=== PATIENT | female | born 1985 | race African-American/Black ===

== ENCOUNTER 2016-07-05 02:30 | Inpatient (IN) | payer MEDICARE, OTHER ==
[2016-07-05 02:41] VITALS: BMI 34.5
--- NOTE | 2016-07-05 02:47 | PDOC ---
History of Present Illness - General History Source: Patient <Klaus Mcintosh - Last Filed: 07/05/16 03:05> - General History Source: Patient Exam Limitations: No Limitations - History of Present Illness Initial Comments: 07/05/16 02:52 The patient is a 30 year old female who is 19 weeks , A0, with no significant past medical history, who presents to the emergency department with vaginal bleeding and abdominal cramping since yesterday morning. She reports that her abdominal cramping is localized on the lower abdomen, ranging from mild to moderate, without radiation or modifying factors. She states that she feels as if her water broke. She notes that her previous children were born via vaginal delivery. The patient denies chest pain, shortness of breath, headache and dizziness. Denies fever, chills, nausea, vomit, diarrhea and constipation. Denies dysuria, frequency, urgency and hematuria. Allergies: None Past surgical history: None reported Social history: No alcohol, tobacco or drug use reported <Klaus Goldberg - Last Filed: 07/05/16 03:06> - General Chief Complaint: Vaginal Bleeding Stated Complaint: VAGINAL BLEEDING/19 WKS Time Seen by Provider: 07/05/16 02:46 Past History - Past Medical History Other medical history: denies - Psycho/Social/Smoking Cessation Hx Suicidal Ideation: No Smoking History: Never smoked Hx Alcohol Use: No Drug/Substance Use Hx: No <Klaus Mcintosh - Last Filed: 07/05/16 03:05> <Klaus Goldberg - Last Filed: 07/05/16 03:06> - Past Medical History Allergies/Adverse Reactions: Allergies Allergy/AdvReac Type Severity Reaction Status Date / Time No Known Allergies Allergy Verified 07/05/16 02:34 Home Medications: Ambulatory Orders Pnv95/Ferrous Fumarate/FA [ Caplet] 1 each PO DAILY 07/05/16 Review of Systems - Review of Systems Able to Perform ROS?: Yes Comments:: 07/05/16 02:52 GENERAL/CONSTITUTIONAL: No fever or chills. No weakness. HEAD, EYES, EARS, NOSE AND THROAT: No change in vision. No ear pain or discharge. No sore throat. CARDIOVASCULAR: No chest pain or shortness of breath RESPIRATORY: No cough, wheezing, or hemoptysis. GASTROINTESTINAL: +Abdominal cramping. No nausea, vomiting, diarrhea or constipation. GENITOURINARY: +Vaginal bleeding. No dysuria, frequency, or change in urination. MUSCULOSKELETAL: No joint or muscle swelling or pain. No neck or back pain. SKIN: No rash NEUROLOGIC: No headache, vertigo, loss of consciousness, or change in strength/ sensation. ENDOCRINE: No increased thirst. No abnormal weight change HEMATOLOGIC/LYMPHATIC: No anemia, easy bleeding, or history of blood clots. ALLERGIC/IMMUNOLOGIC: No hives or skin allergy. <Klaus Goldberg - Last Filed: 07/05/16 03:06> *Physical Exam - Vital Signs Last Vital Signs Temp Pulse Resp BP Pulse Ox 92 H 18 133/70 100 07/05/16 02:35 07/05/16 02:35 07/05/16 02:35 07/05/16 02:35 <Klaus Mcintosh - Last Filed: 07/05/16 03:05> - Vital Signs Last Vital Signs Temp Pulse Resp BP Pulse Ox 92 H 18 133/70 100 07/05/16 02:35 07/05/16 02:35 07/05/16 02:35 07/05/16 02:35 - Physical Exam Comments: 07/05/16 02:53 GENERAL: Awake, alert, and fully oriented, in no acute distress HEAD: No signs of trauma, normocephalic, atraumatic EYES: PERRLA, EOMI, sclera anicteric, conjunctiva clear ENT: Auricles normal inspection, hearing grossly normal, nares patent, oropharynx clear without exudates. Moist mucosa NECK: Normal ROM, supple, no lymphadenopathy, JVD, or masses LUNGS: No distress, speaks full sentences, clear to auscultation bilaterally HEART: Regular rate and rhythm, normal S1 and S2, no murmurs, rubs or gallops, peripheral pulses normal and equal bilaterally. ABDOMEN: Soft, nontender, normoactive bowel sounds. No guarding, no rebound. No masses EXTREMITIES: Normal inspection, Normal range of motion, no edema. No clubbing or cyanosis. NEUROLOGICAL: Cranial nerves II through XII grossly intact. Normal speech, no focal sensorimotor deficits SKIN: Warm, Dry, normal turgor, no rashes or lesions noted. <Klaus Goldberg - Last Filed: 07/05/16 03:06> ED Treatment Course - LABORATORY CBC & Chemistry Diagram: 07/05/16 02:52 07/05/16 02:52 <Klaus Mcintosh - Last Filed: 07/05/16 03:05> - LABORATORY CBC & Chemistry Diagram: 07/05/16 02:52 07/05/16 02:52 <Klaus Goldberg - Last Filed: 07/05/16 03:06> Medical Decision Making - Medical Decision Making 07/05/16 03:05 Dr. Mcintosh: The scribe's documentation has been prepared under my direction and personally reviewed by me in its entirery. I confirm that the note above accurately reflects all work, treatment, procedures, and medical decision making performed by me. Patient 19 weeks , with complaint of her water breaking. Patient states she is experiencing lower abdominal cramping. Patient to be admitted to L&D. <Klaus Mcintosh - Last Filed: 07/05/16 03:05> *DC/Admit/Observation/Transfer - Discharge Dispostion Admit: Yes <Klaus Mcintosh - Last Filed: 07/05/16 03:05> - Attestations Scribe Attestion: 07/05/16 02:53 Documentation prepared by Klaus Goldberg, acting as medical scheduler for Klaus Mcintosh DO <Klaus Goldberg - Last Filed: 07/05/16 03:06> Diagnosis at time of Disposition: Vaginal bleeding Qualifiers: Weeks of gestation: 19 weeks Qualified Code(s): Z3A.19 - 19 weeks gestation of
[2016-07-05] MEDS ORDERED: PROMETHAZINE HCL 25 MG/1 ML VIAL IVPUSH ONE (02:49)
[2016-07-05] MEDS ORDERED: BUTORPHANOL TARTRATE 1 MG/ML VIAL IVPB ONE (02:49)
[2016-07-05 02:58] LABS: BASOPHIL 0.8 % (0-2.0); EOSINOPHIL 0.6 % (0-4.5); MCH 21.6 pg (25.7-33.7); MCHC 30.8 g/dl (32.0-36.0); MEAN PLT VOLUME 9.1 fl (7.5-11.1); NEUTROPHILS 65.7 % (42.8-82.8); PLATELET COUNT 352 K/MM3 (134-434); RDW 26.2 % (11.6-15.6)
[2016-07-05] MEDS ORDERED: ELECTROLYTE-148 SOLN 1,000 ML IV SCH (03:00)
--- NOTE | 2016-07-05 03:01 | HP ---
Past Medical History - Admission Chief Complaint: vaginal bleeding, leaking fluid, cramping History of Present Illness: 30 y/o with SIUP at 19.4 weeks gestation here with complaints of vaginal bleeding and leaking fluid. Pt also complains of abdominal cramping. Pt has a history of 2 full term SVDs in the past and history of two 6 week elective terminations in the past. Pt had on and off vaginal bleeding throughout this and no evidence of cause of bleeding was evident on ultrasound. Pt states that while she was at home this evening, she noticed a large amount of vaginal bleeding and a gush of fluid. Patient has no CP/SOB/F/C /MOREL. No significant medical history. Pt is B positive blood type. No other issues today. 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 Weeks Gestation by Dates: 19.4 Heme/Onc: Yes: Anemia Infectious Disease: No: HIV, MRSA, STD's Psych: No: Bipolar, Depression Endocrine: No: Hyperthyroidism, Hypothyroidism - Past Surgical History Past Surgical History: Yes: None Hx Myomectomy: No Hx Transabdominal Cerclage: No - Smoking History Smoking history: Never smoked - Alcohol/Substance Use Hx Alcohol Use: No - Social History ADL: Independent History of Recent Travel: No Home Medications - Allergies Allergies/Adverse Reactions: Allergies Allergy/AdvReac Type Severity Reaction Status Date / Time No Known Allergies Allergy Verified 07/05/16 02:34 - Home Medications Home Medications: Ambulatory Orders Pnv95/Ferrous Fumarate/FA [ Caplet] 1 each PO DAILY 07/05/16 Review of Systems - Review of Systems Constitutional: reports: No Symptoms Eyes: reports: No Symptoms HENT: reports: No Symptoms Neck: reports: No Symptoms Cardiovascular: reports: No Symptoms Respiratory: reports: No Symptoms Gastrointestinal: reports: No Symptoms Genitourinary: reports: No Symptoms Breasts: reports: No Symptoms Reported Musculoskeletal: reports: No Symptoms Integumentary: reports: No Symptoms Neurological: reports: No Symptoms Endocrine: reports: No Symptoms Hematology/Lymphatic: reports: No Symptoms Psychiatric: reports: No Symptoms Physical Exam - Maternity Vital Signs: Vital Signs Temperature Pulse Rate 92 H 07/05/16 02:35 Respiratory Rate 18 07/05/16 02:35 Blood Pressure 133/70 07/05/16 02:35 O2 Sat by Pulse Oximetry (%) 100 07/05/16 02:35 Constitutional: Yes: Well Nourished, Calm, Mild Distress Eyes: Yes: Conjunctiva Clear, EOM Intact HENT: Yes: Atraumatic, Normocephalic Neck: Yes: Supple, Trachea Midline Cardiovascular: Yes: Regular Rate and Rhythm Lungs: Clear to auscultation - Abdominal Exam/OB Fundal Height: 20 Number of Fetuses: Single Presentation: Breech Contractions: Yes Regularity: Cramping - Vaginal Exam/OB Vaginal Bleediing: Yes Speculum Exam: Yes Dilatation (cm): 3 Effacement (%): 50 Amniotic Membrane Status: Ruptured Presentation: Compound (umbilical cord noted to be in vagina canal) Station: 0 - Physical Exam Extremities: Yes: WNL ...Motor Strength: WNL Psychiatric: Yes: Alert, Oriented Hemorrhage Risk Assessment - Risk Factors Medium Risk Factors: Yes: None High Risk Factors: Yes: Active bleeding on admission Risk Score: 3 Risk Level: High Risk Problem List - Problems (1) Vaginal bleeding Code(s): N93.9 - ABNORMAL UTERINE AND VAGINAL BLEEDING, UNSPECIFIED (2) Code(s): Z33.1 - STATE, INCIDENTAL Qualifiers: Weeks of gestation: 19 weeks Qualified Code(s): Z3A.19 - 19 weeks gestation of (3) Spontaneous rupture of amniotic membranes Code(s): IMT9883 - Assessment/Plan 30 y/o with SIUP at 19.4 weeks gestation with ruptured amniotic membranes and cramping - incomplete - Admit to hospital - will go to post /antepartum floor - get IV access. Draw CBC/T&S/CMP/Coags - plan for vaginal cytotec to induce delivery of fetus - 2 units PRBC ready - type and crossed
[2016-07-05 03:11] LABS: INR 0.97 (0.82-1.09); PROTHROMBIN TIME (PATIENT) 10.7 SEC (9.98-11.88)
[2016-07-05 03:23] LABS: ALBUMIN 2.8 g/dl (3.4-5.0); ANION GAP 8 (8-16); BILIRUBIN,TOTAL 0.2 mg/dL (0.2-1.0); CALCIUM 8.9 mg/dL (8.5-10.1); CO2 26 mmol/L (21-32); CREATININE 0.6 mg/dL (0.55-1.02); GLUCOSE,RANDOM 99 mg/dL (74-106); SGOT/AST 21 U/L (15-37); SGPT/ALT 18 U/L (12-78); TOT PROT 6.6 g/dl (6.4-8.2)
[2016-07-05 03:24] LABS: ALK PHOS 91 U/L (45-117)
--- NOTE | 2016-07-05 03:34 | PN ---
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
[2016-07-05] MEDS ORDERED: ACETAMINOPHEN 325 MG TABLET (FP) PO PRN (03:36)
[2016-07-05] MEDS ORDERED: METHYLERGONOVINE MALEATE 0.2 MG/1 ML AMP IM PRN (03:36)
[2016-07-05] MEDS ORDERED: IBUPROFEN 600 MG TABLET (FP) PO PRN (03:36)
[2016-07-05] MEDS ORDERED: OXYTOCIN 20 UNITS in 0.9% NS 1,000 ML IV SCH (03:45)
--- NOTE | 2016-07-05 05:03 | PN ---
Progress Note (short form) - Note Progress Note: Came to evaluate patient after complaints of increasing cramping and vaginal bleeding. Traction placed on the umbilical cord and the placenta was manually extracted from the cervix. Placenta then delivered in tact. VB minimal after delivery. Problem List - Problems (1) Vaginal bleeding Code(s): N93.9 - ABNORMAL UTERINE AND VAGINAL BLEEDING, UNSPECIFIED (2) Code(s): Z33.1 - STATE, INCIDENTAL Qualifiers: Weeks of gestation: 19 weeks Qualified Code(s): Z3A.19 - 19 weeks gestation of (3) Spontaneous rupture of amniotic membranes Code(s): [id number] -
[2016-07-05] MEDS ORDERED: CEFAZOLIN 1 GM in DEXTROSE 5%-WATER - 50 ML IVPB SCH (05:15)
[2016-07-05 07:11] LABS: ANISOCYTOSIS 1+; POLYCHROMASIA 1+; SPHEROCYTE 1+
[2016-07-05 07:12] LABS: PLATELET ESTIMATE ADEQUATE (NORMAL)
[2016-07-05] MEDS ORDERED: MISOPROSTOL 200 MCG TABLET PV SCH (08:00)
[2016-07-05 08:14] LABS: BASOPHIL 0.4 % (0-2.0); EOSINOPHIL 0.7 % (0-4.5); MCH 22.4 pg (25.7-33.7); MCHC 31.9 g/dl (32.0-36.0); MEAN CELL VOLUME 70.3 fl (80-96); MEAN PLT VOLUME 8.4 fl (7.5-11.1); NEUTROPHILS 76.2 % (42.8-82.8); PLATELET COUNT 318 K/MM3 (134-434); RDW 26.3 % (11.6-15.6); WHITE BLOOD COUNT 12.6 K/mm3 (4.0-10.0)
[2016-07-05 13:16] VITALS: BP 129/62; PULSE 88; TEMP 98
--- NOTE | 2016-07-05 15:43 | DS ---
Physical Exam-YARD ENGINEER Vital Signs: Vital Signs Temperature 98.0 F 07/05/16 13:14 Pulse Rate 88 07/05/16 13:14 Respiratory Rate 18 07/05/16 13:14 Blood Pressure 129/62 07/05/16 13:14 O2 Sat by Pulse Oximetry (%) 100 07/05/16 02:35 Constitutional: Yes: Well Nourished, No Distress, Calm Eyes: Yes: Conjunctiva Clear, EOM Intact HENT: Yes: Atraumatic, Normocephalic Neck: Yes: Supple, Trachea Midline Cardiovascular: Yes: Regular Rate and Rhythm Respiratory: Yes: Regular, CTA Bilaterally Gastrointestinal: Yes: Normal Bowel Sounds, Soft ....Post : Yes: Uterus firm, Uterus non-tender, Slight lochia rubra Extremities: Yes: WNL Wound/Incision: Yes: Clean/Dry, Well Approximated Neurological: Yes: Alert, Oriented Psychiatric: Yes: Alert, Oriented Labs: CBC, BMP 07/05/16 07:20 07/05/16 02:52 Delivery - Delivery Vaginal Delivery: No Problems, Spontaneous (previable) Episiotomy/Laceration: None EBL (cc): 150 Delivery, Single - Stages of Labor Date of Delivery: 07/05/16 Time of Delivery: 03:25 Date Placenta Delivered: 07/05/16 Time Placenta Delivered: 04:50 Placenta: Yes: Manual Removal - Condition of Anode Adjuster/Certified Medical Transcriptionist Present: No Gender: Male Weight: 8.995 oz - 1 Minute Total Score: 0 5 Minutes Total Score: 0 Discharge Summary Reason For Visit: VAGINAL BLEEDING Current Active Problems (Acute) Spontaneous rupture of amniotic membranes (Acute) Vaginal bleeding (Acute) Procedures: Principal: vaginal delivery Hospital Course: Pt admitted to post with 19.4 week gestation fetus with rupture of membranes and dilated cervix - inevitable . 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 PLacenta delivered approx 90 minutes later after pitocin/cytotec given. Pt kept in observation throughout the day and was discharged home in stable condition 07/05/16 in the evening. Condition: Good - Instructions Diet, Activity, Other Instructions: Physical activity Resume your normal everyday activity as tolerated but no heavy lifting or strenuous exercise until seen by your doctor. You may walk unlimited amounts and climb stairs. You may resume driving the car when you feel safe and comfortable behind the wheel. No sexual activity as instructed. You may shower , no soaking in tubs or pools until cleared by your doctor. Diet There are no dietary restrictions. Eat healthy, high-fiber foods. Drink 6 to 8 glasses of liquid each day. This will assist in keeping your bowels are regular. Pain management You may take Tylenol Ibuprofen (for example, Motrin, Advil etc.) over the counter for pain as needed. You can take up to 600mg (3 tablets ) of ibuprofen every 6 hours - do NOT exceed 2400mg of Ibuprofen in a 24 hour period. Call MD for any of the following: Severe pain not relieved by medication Fever of 101 or higher Excessive bleeding or drainage Inability to urinate Referrals: Shavon Clemens DO [Staff Physician] - (2 weeks ) - Home Medications Comprehensive Discharge Medication List: Ambulatory Orders Pnv95/Ferrous Fumarate/FA [ Caplet] 1 each PO DAILY 07/05/16
--- NOTE | 2016-07-06 13:54 | PATH ---
Surgical Pathology Report Patient Name: MAGED BERNAL [facility]. Rec. 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 Specimen(s) Received A: PLACENTA B: FETUS, WITH DISSECTION Clinical History , demise, 19.3 weeks; spontaneous vagina delivery Final Diagnosis A. PLACENTA, DELIVERY: MULTIFOCALLY DISRUPTED THIRD TRIMESTER PLACENTA WITH MODERATE TO MARKED INCREASE IN PREVILLOUS, PERIVILLOUS, AND PRECHORIONIC FIBRIN DEPOSITION, THREE VESSEL UMBILICAL CORD WITH FOCAL ACUTE FUNISITIS, AND PLACENTAL MEMBRANES MARKED ACUTE CHORIOAMNIONITIS AND ACUTE INFLAMMATION OF CHORIONIC PLATE WITH CHORIONIC VASCULITIS. B. FETUS: 243 GM, 19.3 STATED GESTATIONAL WEEKS, INTACT MALE FETUS WITH: CROWN TO RUMP LENGTH: 14.5 CM CROWN TO HEEL LENGTH: 21.5 CM FOOT LENGTH: 3.3 CM ANTROPOMETRIC MEASUREMENTS APPROPRIATE FOR STATED GESTATIONAL AGE. LUNGS WITH INTRAUTERINE PNEUMONIA AND FOCAL MECONIUM TYPE MATEIAL. GI TRACT WITH INGESTED INFLAMMATORY MATERIAL. OTHER INTERNAL ORGANS WITHOUT SIGNIFICANT PATHOLOGIC FINDINGS. NO EXTERNAL MALFORMATIONS IDENTIFIED. Electronically Signed Kiko Hadley M.D. Gross Description A. The specimen is received fresh, labeled "placenta" and is a 120 gram, 12.0 x 9.0 x 1.8 cm. placenta with attached membranes and umbilical cord. The attached membranes are tapia, translucent with opacities and insert marginally. The umbilical cord measures 16.5 cm in length and averages 0.5 cm in diameter. The cord inserts eccentrically, 1.5 cm to the nearest margin. No true knots or strictures are identified. Cut surface of the umbilical cord reveals 3 vessels. The surface is mims-blue with fibrin deposition and appropriate caliber vessels. The maternal surface is tapia-pink with multifocal defects. Sectioning reveals red-brown, spongy parenchyma. No lesions are identified. Metal Casket Maker sections are submitted in three cassettes as follows: 1- membrane rolls and umbilical cord; 2-3- full thickness sections of placenta. B. Received fresh, labeled with the patient's name and indicated on the requisition to be a fetus, is a 243 g intact fetus measuring 14.5 cm from crown to rump and 21.5 cm from crown to heel. Each foot measures 3.3 cm from heel to toe. The anus and nares are patent. The eyelids are fused shut. The upper and lower extremities are completely normal and well proportioned, without any bony defects. Each hand and foot displays 5 digits. There are no axial defects and the lumbosacral spine is intact. There is a 5.5 cm in length x 0.6 cm in diameter portion of umbilical cord attached to the umbilicus. The heart is normally positioned and all major blood vessels are in their normal anatomic position. No gross cardiac or lung abnormalities are noted. The abdominal organs also occupy their normal anatomic position. The kidneys and adrenals are well formed. The genitourinary tract is unremarkable. The external genitalia are well formed and that of a male. The brain is tapia and gelatinous. Metal Casket Maker sections are submitted in 5 cassettes as follows: 1-ribs, umbilical cord, heart, lungs, thymus; 2-liver, stomach, spleen, intestines; 3-kidneys and adrenals; 4-testes; 5-brain. 07/05/2016 [facility]07/05/2016
[2016-07-06] MEDS ORDERED: SENNOSIDES/DOCUSATE COMBO (SENNA PLUS) TABLET (UD) PO PRN (22:00)
== END 2016-07-05 16:30 | disposition home or self-care (01) | DRG 564 ==
LOC: JER 02:30 → J3W 02:50
PROVIDERS: ADMIT Obstetrics & Gynecology; ATTEND Obstetrics & Gynecology
DX: O02.1 Missed abortion (principal)
CPT/HCPCS: 36415; 80053; 84702; 85025; 85610; 86850; 86900; 86901; 86922; 88307-TC; 88309-TC; 99281-25

== ENCOUNTER 2018-03-28 05:57 | Inpatient (IN) | payer OTHER ==
[2018-03-28 06:32] VITALS: BMI 36.2
[2018-03-28] MEDS ORDERED: BUTORPHANOL TARTRATE 1 MG/ML VIAL IVPB ONE (06:39)
[2018-03-28] MEDS ORDERED: AMPICILLIN SODIUM 2 GM VIAL ONE (06:40)
[2018-03-28] MEDS ORDERED: AMPICILLIN - 2 GM in SODIUM CHLORIDE 100 ML IVPB ONE (06:44)
[2018-03-28] MEDS ORDERED: ELECTROLYTE-148 SOLN 1,000 ML IV SCH ×2 (06:45)
[2018-03-28 07:01] LABS: BASO % 0.4 % (0-2.0); EOS % 0.4 % (0-4.5); HEMATOCRIT 31.9 % (32.4-45.2); HEMOGLOBIN 9.9 GM/dL (10.7-15.3); LYMPH % 31.6 % (8-40); MCH 22.5 pg (25.7-33.7); MEAN CELL VOLUME 72.6 fl (80-96); MONO % 6.2 % (3.8-10.2); NEUT % 61.4 % (42.8-82.8); PLATELET COUNT 236 K/MM3 (134-434); RBC 4.39 M/mm3 (3.60-5.2); RDW 22.6 % (11.6-15.6); WHITE BLOOD COUNT 8.5 K/mm3 (4.0-10.0)
[2018-03-28 07:13] LABS: INR 0.89 (0.83-1.09); PROTHROMBIN TIME (PATIENT) 10.5 SEC (9.7-13.0)
[2018-03-28 07:15] LABS: ACTIVATED PTT 25.9 SECONDS (25.2-36.5)
[2018-03-28 07:19] LABS: ANION GAP 10 MMOL/L (8-16); BLOOD UREA NITROGEN 5 mg/dL (7-18); CALCIUM 8.9 mg/dL (8.5-10.1); CHLORIDE 111 mmol/L (98-107); CO2 20 mmol/L (21-32); CREATININE 0.5 mg/dL (0.55-1.3); GLUCOSE,RANDOM 84 mg/dL (74-106); POTASSIUM 4.2 mmol/L (3.5-5.1); SODIUM 141 mmol/L (136-145)
[2018-03-28 07:58] LABS: ANISOCYTOSIS 3+; PLATELET ESTIMATE ADEQUATE; TARGET CELLS 1+
[2018-03-28] MEDS ORDERED: DEXTROSE 5%-LACTATED RINGERS 1,000 ML IV SCH (08:45)
[2018-03-28] MEDS ORDERED: TUBERCULIN PPD 5 TU/0.1ML SYRINGE (IN PATIENT USE ONLY) ID ONE (10:00)
[2018-03-28] MEDS ORDERED: AMPICILLIN SODIUM 1 GM VIAL ONE (10:15)
[2018-03-28] MEDS ORDERED: SODIUM CHLORIDE 100 ML IVPB ONE (10:15)
[2018-03-28] MEDS ORDERED: AMPICILLIN - 1 GM in SODIUM CHLORIDE 100 ML IVPB SCH (10:46)
[2018-03-28] MEDS ORDERED: PROMETHAZINE HCL 25 MG/1 ML VIAL ONE (10:52)
[2018-03-28] MEDS ORDERED: BUTORPHANOL TARTRATE 1 MG/ML VIAL ONE ×3 (10:52→10:59)
[2018-03-28] MEDS ORDERED: BUTORPHANOL TARTRATE 1 MG/ML VIAL IVPUSH ONE (11:00)
--- NOTE | 2018-03-28 11:04 | PN ---
Ante-Partal Exam - Subjective Subjective: Pt with increasing pain/contractions. Vital Signs: Vital Signs Temperature 98.8 F 03/28/18 10:00 Pulse Rate 78 03/28/18 10:00 Respiratory Rate 20 03/28/18 10:00 Blood Pressure 136/64 03/28/18 10:00 O2 Sat by Pulse Oximetry (%) Bleeding: No Headache: No Visual changes: No Right upper quadrant pain: No Pain (scale 1-10): 9 - Contractions Contractions: Yes Regularity: Regular Intensity: Moderate - Exam during Labor Heart Rate: 145 Variability: Moderate Category: II Monitor Decelerations: Variable (with contractions) Exam: Vaginal Dilatation (cm): 8 Effacement (%): 90 Amniotic Membrane Status: Ruptured Presentation: Vertex Station: -1 - Assessment/Plan Assessment/Plan: SIUP at 40.1 weeks, labor, SROM FHTS cat 1 expectant management anticipate
--- NOTE | 2018-03-28 11:05 | HP ---
Past Medical History - Admission History Source: Patient, Medical Record - Past Medical History Cardiovascular: No: AFIB, HTN Pulmonary: No: Asthma, COPD Hepatobiliary: No: Hepatitis B, Hepatitis C Renal/: No: UTI Reproductive: No: Ectopic ...: 6 ...Para: 2 ...Term: 2 ...: 0 ...Spon : 1 ...Induced : 2 ...Multiple Gestation: 0 ...LMP: 06/15/17 ... Weeks Gestation by Dates: 40.6 ...EDC by Dates: 03/22/18 ...EDC by Sono: 03/27/18 Heme/Onc: Yes: Anemia Psych: No: Anxiety, Bipolar, Depression - Past Surgical History Past Surgical History: Yes: None Hx Myomectomy: No Hx Transabdominal Cerclage: No - Smoking History Smoking history: Never smoked Have you smoked in the past 12 months: No - Alcohol/Substance Use Hx Alcohol Use: No - Social History ADL: Independent History of Recent Travel: No Home Medications - Allergies Allergies/Adverse Reactions: Allergies Allergy/AdvReac Type Severity Reaction Status Date / Time No Known Allergies Allergy Verified 03/28/18 06:19 - Home Medications Home Medications: Ambulatory Orders Docusate Sodium [Colace] 100 mg PO DAILY 03/28/18 Ferrous Sulfate [Feosol] 325 mg PO BID 03/28/18 Physical Exam - Maternity Vital Signs: Vital Signs Temperature 98.8 F 03/28/18 10:00 Pulse Rate 78 03/28/18 10:00 Respiratory Rate 20 03/28/18 10:00 Blood Pressure 136/64 03/28/18 10:00 O2 Sat by Pulse Oximetry (%) Constitutional: Yes: Well Nourished, Mild Distress Eyes: Yes: WNL Neck: Yes: Supple Cardiovascular: Yes: Regular Rate and Rhythm Breast(s): Yes: WNL - Abdominal Exam/OB Number of Fetuses: Single Presentation: Vertex Contractions: Yes Regularity: Regular Intensity: Strong Category: I Accelerations: Uniform Decelerations: None - Vaginal Exam/OB Speculum Exam: No Dilatation (cm): 6 Effacement (%): 80 Station: -1 - Physical Exam Psychiatric: Yes: Alert, Oriented - Labs Lab Results: CBC, BMP 03/28/18 06:20 03/28/18 06:20 Problem List - Problems (1) Spontaneous rupture of amniotic membranes Code(s): FAM4618 - (2) Active labor at term Code(s): MDB6641 - (3) Group beta Strep positive Code(s): B95.1 - STREPTOCOCCUS, GROUP B, CAUSING DISEASES CLASSD ELSWHR Assessment/Plan 32 y/o with SIUP at 40.1 weeks, active labor FHTs cat 1 6cm dilated continue expectant management analgesia prn GBs positive, continue ampicillin anticipate
[2018-03-28] MEDS ORDERED: IBUPROFEN 600 MG TABLET (FP) PO PRN (11:35)
[2018-03-28] MEDS ORDERED: ACETAMINOPHEN 325 MG TABLET (FP) PO PRN (11:35)
[2018-03-28] MEDS ORDERED: WITCH HAZEL 50% (TUCKS) 40 PAD/JAR PAD TP PRN (11:35)
[2018-03-28] MEDS ORDERED: BENZOCAINE 28 GM HEMORRHOIDAL OINTMENT TP PRN (11:35)
[2018-03-28] MEDS ORDERED: BENZOCAINE 20% 57 GM BOTTLE TP PRN (11:35)
[2018-03-28] MEDS ORDERED: METHYLERGONOVINE MALEATE 0.2 MG/1 ML AMP IM PRN (11:35)
[2018-03-28] MEDS ORDERED: BISACODYL 10 MG SUPP.RECT RC PRN (11:35)
--- NOTE | 2018-03-28 11:46 | PN ---
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
[2018-03-28] MEDS ORDERED: OXYTOCIN 20 UNITS in 0.9% NS 20 UNIT/1,000 ML INFUS.BAG IV SCH (14:30)
[2018-03-28] MEDS: FERROUS SO4 325 MG TABLET (FP) PO SCH ×2 (14:52→17:54)
[2018-03-28] MEDS ORDERED: DIPHTH,PERTUSS(ACELL),TET 0.5 ML DISP.SYRIN IM ONE (16:30)
--- NOTE | 2018-03-29 07:29 | PN ---
Post Progress Note - Subjective Subjective: Pt without complaints. Post Day: 1 Type of Delivery: Vital Signs: Vital Signs Temperature 98.3 F 03/29/18 05:58 Pulse Rate 89 03/29/18 05:58 Respiratory Rate 18 03/29/18 05:58 Blood Pressure 124/72 03/29/18 05:58 O2 Sat by Pulse Oximetry (%) 99 03/28/18 12:45 Uterus: Yes: Fundus Firm, Fundus below umbilicus Lochia: Yes: Rubra Lochia, amount: Small Extremities: No: Edema Perineum: Yes: Intact Activity: Ambulating - Labs Labs: CBC WBC 8.5 K/mm3 (4.0-10.0) 03/28/18 06:20 RBC 4.39 M/mm3 (3.60-5.2) 03/28/18 06:20 Hgb 9.9 GM/dL (10.7-15.3) L 03/28/18 06:20 Hct 31.9 % (32.4-45.2) L D 03/28/18 06:20 MCV 72.6 fl (80-96) L 03/28/18 06:20 MCH 22.5 pg (25.7-33.7) L 03/28/18 06:20 MCHC 31.0 g/dl (32.0-36.0) L 03/28/18 06:20 RDW 22.6 % (11.6-15.6) H 03/28/18 06:20 Plt Count 236 K/MM3 (134-434) D 03/28/18 06:20 MPV 9.0 fl (7.5-11.1) 03/28/18 06:20 Absolute Neuts (auto) 5.2 K/mm3 (1.5-8.0) 03/28/18 06:20 Neutrophils % 61.4 % (42.8-82.8) 03/28/18 06:20 Lymphocytes % 31.6 % (8-40) D 03/28/18 06:20 Monocytes % 6.2 % (3.8-10.2) 03/28/18 06:20 Eosinophils % 0.4 % (0-4.5) 03/28/18 06:20 Basophils % 0.4 % (0-2.0) 03/28/18 06:20 Nucleated RBC % 0 % (0-0) 03/28/18 06:20 Hypochromia 1+ 03/28/18 06:20 Platelet Estimate Adequate 03/28/18 06:20 Platelet Comment No clumping noted 03/28/18 06:20 Polychromasia 1+ 03/28/18 06:20 Anisocytosis 3+ 03/28/18 06:20 Microcytosis 1+ 03/28/18 06:20 Target Cells 1+ 03/28/18 06:20 Problem List - Problems (1) Spontaneous rupture of amniotic membranes Code(s): NWK0891 - (2) Active labor at term Code(s): ADT5688 - (3) Group beta Strep positive Code(s): B95.1 - STREPTOCOCCUS, GROUP B, CAUSING DISEASES CLASSD ELSWHR (4) Vaginal delivery Code(s): O80 - ENCOUNTER FOR FULL-TERM UNCOMPLICATED DELIVERY Assessment/Plan 32 y/o PPD#1 s/p normal AFVSS Anemia - continue PO Iron regular diet ambulation routine care
[2018-03-29 07:51] LABS: BASO % 0.3 % (0-2.0); EOS % 0.5 % (0-4.5); HEMATOCRIT 29.8 % (32.4-45.2); HEMOGLOBIN 9.1 GM/dL (10.7-15.3); LYMPH % 18.5 % (8-40); MCH 22.3 pg (25.7-33.7); MCHC 30.6 g/dl (32.0-36.0); MEAN PLT VOLUME 9.1 fl (7.5-11.1); MONO % 6.5 % (3.8-10.2); NEUT % 74.2 % (42.8-82.8); PLATELET COUNT 219 K/MM3 (134-434); RBC 4.09 M/mm3 (3.60-5.2); RDW 22.8 % (11.6-15.6); WHITE BLOOD COUNT 13.1 K/mm3 (4.0-10.0)
[2018-03-29] MEDS: PRENATAL VITAMINS W/ FOLIC ACID TABLET (FP) PO SCH (09:37)
[2018-03-29] MEDS: FERROUS SO4 325 MG TABLET (FP) PO SCH ×2 (09:37→17:30)
[2018-03-29] MEDS: DOCUSATE SODIUM 100 MG CAPSULE (FP) PO SCH (21:45)
[2018-03-29] MEDS ORDERED: SENNOSIDES/DOCUSATE COMBO (SENNA PLUS) TABLET (UD) PO PRN (22:00)
[2018-03-30] MEDS: FERROUS SO4 325 MG TABLET (FP) PO SCH (08:34)
[2018-03-30] MEDS: PRENATAL VITAMINS W/ FOLIC ACID TABLET (FP) PO SCH (10:12)
[2018-03-30] MEDS: DOCUSATE SODIUM 100 MG CAPSULE (FP) PO SCH (10:12)
--- NOTE | 2018-03-30 10:58 | DS ---
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: Vital Signs Temperature 98.5 F 03/29/18 22:00 Pulse Rate 66 03/29/18 22:00 Respiratory Rate 18 03/29/18 22:00 Blood Pressure 139/86 03/29/18 22:00 O2 Sat by Pulse Oximetry (%) 99 03/28/18 12:45 Constitutional: Yes: Well Nourished, No Distress, Calm HENT: Yes: Atraumatic, Normocephalic Neck: Yes: WNL Cardiovascular: Yes: Regular Rate and Rhythm Respiratory: Yes: Regular Gastrointestinal: Yes: Soft Renal/: Yes: Vaginal Bleeding (normal post op lochia rubra) Uterus: Yes: Normal ....Post : Yes: Uterus firm, Uterus non-tender Neurological: Yes: Alert, Oriented Psychiatric: Yes: Alert, Oriented Labs: CBC, BMP 03/29/18 06:55 03/28/18 06:20 Delivery - Delivery Vaginal Delivery: No Problems Type of Anesthesia: None Episiotomy/Laceration: None EBL (cc): 300 Delivery, Single - Stages of Labor Date 1st Stage Initiatied: 03/28/18 Time 1st Stage Initiated: 02:00 Date 2nd Stage Initiated: 03/28/18 Time 2nd Stage Initiated: 11:10 Date of Delivery: 03/28/18 Time of Delivery: 11:23 Time Placenta Delivered: 11:25 Placenta: Yes: Spontaneous - 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 Pt recovered well post and was dicharged home on post day 2. Condition: Good - Instructions Diet, Activity, Other Instructions: Physical activity Resume your normal everyday activity as tolerated no heavy lifting or exercise until seen by your surgeon. You may walk unlimited jose raul of and climb stairs. You may resume driving the car when you feel safe and comfortable behind the wheel. No sexual activity as instructed. Wound care If you have a bandage, leave it on, and keep dry for 48-72 hours. After that time discard the outer bandage. If they are tapes on the skin under the out of bandage leave them in place. They will peel off in the next 7 to 10 days. Do Not Peel them off. You may shower the day after surgery. If there are tapes present on the skin, you may shower over them. Diet There are no dietary restrictions. Eat healthy, high-fiber foods. Drink 6 to 8 glasses of liquid each day. This will assist in keeping your bowels are regular. Pain management You may take Tylenol or acetaminophen or Ibuprofen (for example, Motrin, Advil etc.) from my pain prescription medication is ordered should be taken as prescribed for moderate to severe pain. Call MD for any of the following: Severe pain not relieved by medication Fever of 101 or higher Excessive bleeding or drainage on dressing Inability to urinate Disposition: HOME - Home Medications Comprehensive Discharge Medication List: Ambulatory Orders Docusate Sodium [Colace] 100 mg PO DAILY 03/28/18 Ferrous Sulfate [Feosol] 325 mg PO BID 03/28/18 Ibuprofen [Motrin -] 600 mg PO QID PRN #28 tablet 03/30/18
[2018-03-30 13:38] VITALS: BP 130/68; PULSE 68; TEMP 98
== END 2018-03-30 13:00 | disposition home or self-care (01) | DRG 775 ==
LOC: JLDR 05:57 → J3W 13:07
PROVIDERS: ADMIT Obstetrics & Gynecology; ATTEND Obstetrics & Gynecology
PROC: 10E0XZZ Delivery of Products of Conception, External Approach (ICD-10-PCS; principal; 2018-03-28)
DX: O48.0 Post-term pregnancy (principal); O77.0 Labor and delivery complicated by meconium in amniotic fluid; O99.824 Streptococcus B carrier state complicating childbirth; O99.013 Anemia complicating pregnancy, third trimester; D64.9 Anemia, unspecified; Z3A.40 40 weeks gestation of pregnancy; Z37.0 Single live birth
CPT/HCPCS: 36415; 59409; 80048; 85025; 85610; 85730; 86593; 86850; 86900; 86901; 87389; 90715

== ENCOUNTER 2024-02-03 17:13 | Emergency (ER) | payer BC, OTHER ==
[2024-02-03 17:18] VITALS: BMI 34.1
[2024-02-03 18:36] LABS: BASO % 0.9 % (0-2.0); EOS % 1.2 % (0-4.5); HEMATOCRIT 25.3 % (32.4-45.2); HEMOGLOBIN 7.7 GM/dL (10.7-15.3); MCHC 30.3 g/dl (32.0-36.0); MEAN CELL VOLUME 62.1 fl (80-96); MEAN PLT VOLUME 8.6 fl (7.5-11.1); MONO % 5.6 % (3.8-10.2); NEUT % 52.3 % (42.8-82.8); PLATELET COUNT 384 10^3/uL (134-434); RBC 4.07 M/mm3 (3.60-5.2); RDW 21.4 % (11.6-15.6); WHITE BLOOD COUNT 6.9 K/mm3 (4.0-10.0)
[2024-02-03 18:38] LABS: MCH 18.8 pg (25.7-33.7)
[2024-02-03 18:45] LABS: INR 0.98 (0.83-1.09); PROTHROMBIN TIME (PATIENT) 11.1 SEC (9.7-13.0)
[2024-02-03 19:02] LABS: POTASSIUM 4.2 mmol/L (3.5-5.1)
[2024-02-03 19:05] LABS: ALBUMIN 3.4 g/dl (3.4-5.0); CALCIUM 9.2 mg/dL (8.5-10.1); MAGNESIUM 2.1 mg/dL (1.8-2.4)
[2024-02-03 19:07] LABS: IRON SERUM 306 ug/dL (50-175)
[2024-02-03 19:08] LABS: TOTAL IRON BINDING CAPACITY 509 ug/dL (250-450)
[2024-02-03 19:09] LABS: CREATININE 1.1 mg/dL (0.55-1.3)
[2024-02-03 19:10] LABS: BILIRUBIN,TOTAL 0.1 mg/dL (0.2-1); TOT PROT 7.1 g/dl (6.4-8.2)
[2024-02-03 19:28] LABS: ANISOCYTOSIS 3+; MACROCYTOSIS 0
[2024-02-03 19:54] LABS: ACTIVATED PTT 18.2 SECONDS (25.2-36.5)
[2024-02-03 20:02] VITALS: BP 132/80; PULSE 73; RESP 18; TEMP 98.7
== END 2024-02-03 20:28 | disposition home or self-care (01) ==
LOC: JER 17:13
DX: R42 Dizziness and giddiness (principal); D64.9 Anemia, unspecified; R53.83 Other fatigue
CPT/HCPCS: 36415; 71045-TC-FY; 80053; 83540; 83550; 83735; 84703; 85025; 85610; 85730; 86850; 86900; 86901; 93005; 93010; 99285-25